=== PATIENT | male | born 1990 | race Hispanic/Latino ===

== ENCOUNTER 2020-06-24 02:25 | Inpatient (IN) | payer MEDICARE ==
[2020-06-24] VITALS (15 sets, daily range): BP systolic 99–157; BP diastolic 57–93
[~2020-06-24] VITALS: Ht 188 cm; Wt 85.7 kg
[~2020-06-24 02:25] MED LIST: BACTRIM DS TAB1 EACH PO; BENTYL20 MG PO; HUMULIN R100 UNIT/2 SC; LEVEMIR100 UNIT/1 SC; METFORMIN HCL500 MG PO
[2020-06-24] MEDS ORDERED: ACETAMINOPHEN 325 MG TAB PO ONE (03:00)
[2020-06-24] MEDS ORDERED: LIDOCAINE 1% W/EPINEPHRINE 20 ML VIAL ONE (05:07)
[2020-06-24] MEDS ORDERED: SODIUM CHLORIDE 0.9% 1000ML 1,000 ML IV ONE (05:15)
[2020-06-24 05:19] LABS: BASOPHILS # (AUTO) 0.1 (0.0-0.1); BASOPHILS % 0.4 % (0.0-1.0); EOSINOPHILS % 0.1 % (0.0-6.0); HEMATOCRIT 30.3 % (38.2-49.6); HEMOGLOBIN 9.4 g/dL (14.0-18.0); LYMPHOCYTES # (AUTO) 1.1 (1.0-3.2); LYMPHOCYTES % 7.7 % (18.0-39.1); MEAN CORPUSCULAR HEMOGLOBIN 29.9 pg (28-32); MEAN CORPUSCULAR VOLUME 96.5 fL (81-99); MONOCYTES # (AUTO) 1.8 (0.2-0.8); MONOCYTES % 13.3 % (4.4-11.3); NEUTROPHILS # (AUTO) 10.5 (2.1-6.9); NEUTROPHILS % 77.6 % (38.7-80.0); PLATELET COUNT 196 x10e3/uL (140-360); RED BLOOD COUNT 3.14 x10e6/uL (4.3-5.7); RED CELL DISTRIBUTION WIDTH 14.2 % (11.7-14.4)
[2020-06-24] MEDS ORDERED: SODIUM CHLORIDE 0.9% 1000ML 1,000 ML ONE (05:20)
[2020-06-24 05:24] LABS: CLARITY,URINE TURBID (CLEAR); COLOR,URINE OTHER (YELLOW)
[2020-06-24 05:25] LABS: KETONES,URINE NEGATIVE (NEGATIVE); LEUKOCYTE ESTERASE ,URINE LARGE (NEGATIVE); NITRITE,URINE NEGATIVE (NEGATIVE); PROTEIN,URINE DIPSTICK >=300 (NEGATIVE); URINE UROBILINOGEN 0.2 mg/dL (0.2 - 1)
[2020-06-24 05:32] LABS: AMPHETAMINES SCREEN,URINE NEGATIVE (NEGATIVE); PHENCYCLIDINE SCREEN,URINE NEGATIVE (NEGATIVE)
[2020-06-24] MEDS ORDERED: CEPHALEXIN500 MG PO (05:42)
[2020-06-24 05:46] LABS: BACTERIA,URINE FEW /HPF; EPITHELIAL CELLS,URINE RARE /LPF; RBC,URINE 0-5 /HPF (0-5); WBC,URINE (MAN) >50 /HPF (0-5)
[2020-06-24 05:52] LABS: BENZODIAZEPINES SCREEN,URINE NEGATIVE (NEGATIVE)
[2020-06-24 06:08] LABS: ANION GAP 24.8 mmol/L (8-16); CALCIUM 7.4 mg/dL (8.4-10.2); CREATININE, SERUM 14.94 mg/dL (0.72-1.25)
[2020-06-24 06:10] LABS: POTASSIUM 7.8 mmol/L (3.5-5.1)
[2020-06-24] MEDS ORDERED: CALCIUM GLUCONATE 10% INJ 4.65 MEQ in SODIUM CHLORIDE 0.9% 50ML 50 ML IV ONE (06:30)
[2020-06-24] MEDS ORDERED: CALCIUM GLUCONATE 10% INJ 0.465 MEQ/ML VIAL ONE (06:39)
[2020-06-24] MEDS ORDERED: SODIUM CHLORIDE 0.9% 50ML 50 ML ONE (06:40)
[2020-06-24] MEDS ORDERED: ALBUTEROL SULF 0.083% NEB SOLN 3 ML NEB NEB STA (06:43)
[2020-06-24] MEDS ORDERED: SODIUM BICARBONATE 8.4% INJ 50 ML SYR IV STA (06:43)
[2020-06-24] MEDS ORDERED: DEXTROSE 10% 1,000 ML IV ONE (06:45)
[2020-06-24 06:47] LABS: ALBUMIN 2.6 g/dL (3.5-5.0); ALBUMIN/GLOBULIN RATIO 0.6 (0.8-2.0); ANION GAP 22.7 mmol/L (8-16); CALCIUM 7.4 mg/dL (8.4-10.2); CREATININE, SERUM 14.59 mg/dL (0.72-1.25)
[2020-06-24 06:48] LABS: POTASSIUM 7.7 mmol/L (3.5-5.1)
[2020-06-24] MEDS ORDERED: FENTANYL CITRATE/PF 100MCG/2 ML INJ IV ONE ×2 (07:00→09:45)
[2020-06-24] MEDS ORDERED: INSULIN REGULAR, HUMAN 100 UNIT/1 ML 3ML VIAL ONE (07:02)
[2020-06-24] MEDS ORDERED: SODIUM CHLORIDE 0.9% 100 ML ONE (07:03)
[2020-06-24] MEDS ORDERED: SODIUM BICARBONATE 8.4% SYRING 50 ML ONE (07:14)
[2020-06-24] MEDS ORDERED: INSULIN REGULAR, HUMAN 3ML VL 100 UNIT in SODIUM CHLORIDE 0.9% 100 ML 99 ML IV SCH ×2 (07:15)
[2020-06-24] MEDS ORDERED: SOD POLYSTYRENE SULFONATE SUSP 15 GM/60 ML BTL PO ONE (07:15)
[2020-06-24] MEDS ORDERED: DEXTROSE 10% IV ONE (07:15)
[2020-06-24] MEDS ORDERED: SODIUM BICARBONATE 8.4% IV ONE (07:15)
[2020-06-24] MEDS ORDERED: HEPARIN SOD (PORCINE) 1000 UNIT/ML SDV ONE (08:25)
[2020-06-24] MEDS ORDERED: LIDOCAINE HCL 1% LOCAL INJ 20 ML VIAL ONE (08:25)
[2020-06-24 09:50] LABS: BASOPHILS # (AUTO) 0.1 (0.0-0.1); BASOPHILS % 0.4 % (0.0-1.0); EOSINOPHILS # (AUTO) 0.1 (0.0-0.4); EOSINOPHILS % 0.4 % (0.0-6.0); HEMOGLOBIN 8.3 g/dL (14.0-18.0); LYMPHOCYTES # (AUTO) 1.5 (1.0-3.2); LYMPHOCYTES % 12.3 % (18.0-39.1); MEAN CORPUSCULAR HEMOGLOBIN 29.9 pg (28-32); MEAN CORPUSCULAR HGB CONC 30.7 g/dL (31-35); MEAN CORPUSCULAR VOLUME 97.1 fL (81-99); MONOCYTES # (AUTO) 1.7 (0.2-0.8); MONOCYTES % 13.8 % (4.4-11.3); NEUTROPHILS # (AUTO) 8.9 (2.1-6.9); NEUTROPHILS % 72.4 % (38.7-80.0); PLATELET COUNT 184 x10e3/uL (140-360); RED BLOOD COUNT 2.78 x10e6/uL (4.3-5.7); RED CELL DISTRIBUTION WIDTH 14.1 % (11.7-14.4)
[2020-06-24 10:09] LABS: ALBUMIN 2.4 g/dL (3.5-5.0); ALBUMIN/GLOBULIN RATIO 0.6 (0.8-2.0); ANION GAP 21.7 mmol/L (8-16); CALCIUM 7.1 mg/dL (8.4-10.2); CREATININE, SERUM 14.64 mg/dL (0.72-1.25); POTASSIUM 5.7 mmol/L (3.5-5.1)
[2020-06-24] MEDS ORDERED: HEPARIN SOD (PORCINE) 1000 UNIT/ML SDV IV PRN (10:45)
[2020-06-24] MEDS ORDERED: MANNITOL 25% 12.5GM/50 ML VIAL IV PRN (10:45)
[2020-06-24] MEDS ORDERED: SODIUM CHLORIDE 0.9% 1000ML 2,000 ML IV PRN (10:45)
[2020-06-24] MEDS ORDERED: MANNITOL 25% 12.5GM/50ML 50 ML ONE ×2 (10:49→10:50)
[2020-06-24] MEDS ORDERED: INSULIN REGULAR, HUMAN 100 UNIT/1 ML 3ML VIAL SQ SCH (11:30)
[2020-06-24] MEDS ORDERED: MIDODRINE HCL5 MG PO (13:15)
[2020-06-24] MEDS ORDERED: NEURONTIN300 MG PO (13:15)
[2020-06-24] MEDS ORDERED: LEVOTHYROXINE50 MCG PO (13:15)
[2020-06-24] MEDS ORDERED: FLUDROCORTISON0.1 MG PO (13:15)
[2020-06-24] MEDS ORDERED: HYDROCODON-ACE1 EA10 PO (13:15)
[2020-06-24] MEDS ORDERED: ZINC PO (13:33)
[2020-06-24] MEDS ORDERED: FLAX PO (13:33)
[2020-06-24] MEDS ORDERED: [UNRECOGNIZED DRUG - OTHER] PO (13:33)
[2020-06-24] MEDS ORDERED: IRON CHEWS15 MG PO (13:33)
[2020-06-24] MEDS ORDERED: B12 PO (13:33)
[2020-06-24] MEDS ORDERED: TURMERIC1 GM PO (13:33)
[2020-06-24] MEDS ORDERED: VITAMIN C1000 MG PO (13:33)
[2020-06-24] MEDS ORDERED: MVI PO (13:33)
[2020-06-24] MEDS ORDERED: PHENYTOIN SODIUM INJ 50 MG/ML 2 ML VIAL IV STA (13:48)
[2020-06-24] MEDS: SODIUM BICARBONATE 8.4% 150 ML in STERILE WATER IV SOLN 1,000 ML IV SCH (14:17)
[2020-06-24] MEDS ORDERED: SODIUM CHLORIDE 0.9% IV ONE (14:30)
[2020-06-24] MEDS ORDERED: PHENYTOIN SODIUM IV ONE (14:30)
[2020-06-24 15:07] LABS: THYROID STIMULATING HORMONE 0.027 uIU/mL (0.350-4.940)
[2020-06-24] MEDS: PIPERACILLIN/TAZOBAC 3.375 GM in SODIUM CHLORIDE 0.9% 50ML 50 ML IV SCH ×2 (15:17→22:16)
[2020-06-24] MEDS ORDERED: LORAZEPAM INJ 2 MG/ML VIAL IV ONE (18:50)
[2020-06-24] MEDS ORDERED: RISPERIDONE 0.5 MG TAB PO PRN (19:00)
[2020-06-24 19:36] LABS: CALCIUM IONIZED 0.9 mmol/L (1.09-1.30)
[2020-06-24 19:54] LABS: MAGNESIUM 1.6 MG/DL (1.3-2.1)
[2020-06-24] MEDS ORDERED: NON-FORMULARY MEDICATION (Insulin Detemir (Levemir) 20 UNITS) SC SCH (21:00)
[2020-06-25] VITALS (24 sets, daily range): BP systolic 133–162; BP diastolic 73–98
[2020-06-25] MEDS: SODIUM BICARBONATE 8.4% 150 ML in STERILE WATER IV SOLN 1,000 ML IV SCH ×3 (01:20→13:01)
[2020-06-25] MEDS: PIPERACILLIN/TAZOBAC 3.375 GM in SODIUM CHLORIDE 0.9% 50ML 50 ML IV SCH (06:13)
[2020-06-25 06:14] LABS: BASOPHILS # (AUTO) 0.1 (0.0-0.1); BASOPHILS % 0.4 % (0.0-1.0); EOSINOPHILS # (AUTO) 0.1 (0.0-0.4); EOSINOPHILS % 0.6 % (0.0-6.0); HEMATOCRIT 24.8 % (38.2-49.6); HEMOGLOBIN 8.1 g/dL (14.0-18.0); LYMPHOCYTES # (AUTO) 0.9 (1.0-3.2); LYMPHOCYTES % 7.3 % (18.0-39.1); MEAN CORPUSCULAR HEMOGLOBIN 29.9 pg (28-32); MEAN CORPUSCULAR HGB CONC 32.7 g/dL (31-35); MEAN CORPUSCULAR VOLUME 91.5 fL (81-99); MONOCYTES # (AUTO) 1.9 (0.2-0.8); MONOCYTES % 15.4 % (4.4-11.3); NEUTROPHILS # (AUTO) 9.1 (2.1-6.9); NEUTROPHILS % 75.7 % (38.7-80.0); PLATELET COUNT 173 x10e3/uL (140-360); RED BLOOD COUNT 2.71 x10e6/uL (4.3-5.7); RED CELL DISTRIBUTION WIDTH 13.9 % (11.7-14.4)
[2020-06-25] MEDS: LEVOTHYROXINE SODIUM 25 MCG TABLET PO SCH (06:14)
[2020-06-25 06:33] LABS: ALBUMIN 2.1 g/dL (3.5-5.0); ALBUMIN/GLOBULIN RATIO 0.6 (0.8-2.0); ANION GAP 19.2 mmol/L (8-16); CREATININE, SERUM 9.54 mg/dL (0.72-1.25); POTASSIUM 4.2 mmol/L (3.5-5.1)
[2020-06-25 06:35] LABS: CALCIUM 6.1 mg/dL (8.4-10.2)
[2020-06-25] MEDS ORDERED: SODIUM CHLORIDE 0.9% 1000ML 1,000 ML ONE (08:27)
[2020-06-25] MEDS ORDERED: CALCIUM GLUCONATE 10% INJ 9.3 MEQ in SODIUM CHLORIDE 0.9% 100 ML 100 ML IV ONE (09:00)
[2020-06-25] MEDS: MIDODRINE HCL 5 MG TABLET PO SCH (09:00)
[2020-06-25] MEDS: OYST-CAL-D 500MG TABLET PO SCH ×3 (10:15→21:45)
[2020-06-25] MEDS ORDERED: HYDROCODONE/APAP 10MG-325MG TAB PO PRN (12:15)
[2020-06-25] MEDS: HYDROCODONE/APAP 5MG-325MG TAB PO PRN ×2 (14:48→23:14)
[2020-06-25] MEDS: PIPERACILLIN/TAZOBACTAM 2.25 GM in SODIUM CHLORIDE 0.9% 50ML 50 ML IV SCH ×2 (15:24→21:45)
[2020-06-25] MEDS: ACETAMINOPHEN 325 MG TAB PO PRN (17:34)
[2020-06-25] MEDS ORDERED: DIATRIZOATE MEGL/DIATRIZOA SOD 30 ML BTL PO ONE (18:54)
[2020-06-25] MEDS: ZOLPIDEM TARTRATE 5 MG TAB PO PRN (23:14)
[2020-06-26] VITALS (19 sets, daily range): BP systolic 124–174; BP diastolic 67–98
[2020-06-26] MEDS: PIPERACILLIN/TAZOBACTAM 2.25 GM in SODIUM CHLORIDE 0.9% 50ML 50 ML IV SCH (05:30)
[2020-06-26] MEDS: LEVOTHYROXINE SODIUM 25 MCG TABLET PO SCH (05:30)
[2020-06-26] MEDS: ACETAMINOPHEN 325 MG TAB PO PRN (06:27)
[2020-06-26 06:41] LABS: BASOPHILS # (AUTO) 0.1 (0.0-0.1); BASOPHILS % 0.7 % (0.0-1.0); EOSINOPHILS # (AUTO) 0.2 (0.0-0.4); EOSINOPHILS % 2.1 % (0.0-6.0); HEMATOCRIT 24.6 % (38.2-49.6); LYMPHOCYTES # (AUTO) 1.1 (1.0-3.2); LYMPHOCYTES % 11.6 % (18.0-39.1); MEAN CORPUSCULAR HEMOGLOBIN 29.7 pg (28-32); MEAN CORPUSCULAR HGB CONC 32.5 g/dL (31-35); MEAN CORPUSCULAR VOLUME 91.4 fL (81-99); MONOCYTES # (AUTO) 1.7 (0.2-0.8); MONOCYTES % 16.9 % (4.4-11.3); NEUTROPHILS # (AUTO) 6.7 (2.1-6.9); NEUTROPHILS % 68.1 % (38.7-80.0); PLATELET COUNT 173 x10e3/uL (140-360); RED BLOOD COUNT 2.69 x10e6/uL (4.3-5.7); RED CELL DISTRIBUTION WIDTH 13.2 % (11.7-14.4)
[2020-06-26 07:14] LABS: ANION GAP 14.5 mmol/L (8-16); CREATININE, SERUM 5.87 mg/dL (0.72-1.25); MAGNESIUM 1.6 MG/DL (1.3-2.1); PHOSPHORUS 4.3 MG/DL (2.3-4.7); POTASSIUM 3.5 mmol/L (3.5-5.1)
[2020-06-26 07:15] LABS: CALCIUM 6.7 mg/dL (8.4-10.2)
[2020-06-26] MEDS: MIDODRINE HCL 5 MG TABLET PO SCH (08:23)
[2020-06-26] MEDS: OYST-CAL-D 500MG TABLET PO SCH ×3 (09:07→21:12)
[2020-06-26] MEDS ORDERED: CEFTRIAXONE SOD 1 GM/50 ML BAG IV SCH (09:30)
[2020-06-26] MEDS: CEFTRIAXONE SOD 1 GM in SODIUM CHLORIDE 0.9% 50ML 50 ML IV SCH (10:14)
[2020-06-26] MEDS: HYDROCODONE/APAP 5MG-325MG TAB PO PRN ×3 (10:14→21:13)
[2020-06-26] MEDS: SODIUM BICARBONATE 8.4% 150 ML in STERILE WATER IV SOLN 1,000 ML IV SCH ×2 (16:43→21:00)
[2020-06-26] MEDS ORDERED: DEXTROSE 50% SYRINGE 50 ML IV PRN (21:30)
[2020-06-26] MEDS: INSULIN REGULAR, HUMAN 100 UNIT/1 ML 3ML VIAL SQ SCH (21:46)
[2020-06-27] VITALS (9 sets, daily range): BP systolic 124–175; BP diastolic 79–107
[2020-06-27] MEDS: HYDROCODONE/APAP 5MG-325MG TAB PO PRN ×2 (03:54→22:00)
[2020-06-27] MEDS: LEVOTHYROXINE SODIUM 25 MCG TABLET PO SCH (06:02)
[2020-06-27] MEDS ORDERED: SODIUM BICARBONATE 8.4% SYRING 150 ML ONE (06:24)
[2020-06-27] MEDS ORDERED: SODIUM CHLORIDE 0.45% 1,000 ML ONE (06:24)
[2020-06-27 06:41] LABS: ALBUMIN 1.8 g/dL (3.5-5.0); ALBUMIN/GLOBULIN RATIO 0.5 (0.8-2.0); ANION GAP 15.1 mmol/L (8-16); CREATININE, SERUM 5.9 mg/dL (0.72-1.25); POTASSIUM 3.1 mmol/L (3.5-5.1)
[2020-06-27 06:42] LABS: CALCIUM 6.8 mg/dL (8.4-10.2)
[2020-06-27 07:10] LABS: MAGNESIUM 1.5 MG/DL (1.3-2.1); PHOSPHORUS 4.4 MG/DL (2.3-4.7)
[2020-06-27] MEDS ORDERED: SODIUM BICARBONATE 8.4% 150 ML in SODIUM CHLORIDE 0.45% 1,000 ML IV SCH (07:15)
[2020-06-27] MEDS: INSULIN REGULAR, HUMAN 100 UNIT/1 ML 3ML VIAL SQ SCH ×4 (07:30→20:41)
[2020-06-27] MEDS ORDERED: INSULIN REGULAR, HUMAN 100 UNIT/1 ML 3ML VIAL SQ SCH (07:30)
[2020-06-27] MEDS: MIDODRINE HCL 5 MG TABLET PO SCH (08:07)
[2020-06-27 08:28] LABS: BASOPHILS # (AUTO) 0.1 (0.0-0.1); BASOPHILS % 0.6 % (0.0-1.0); EOSINOPHILS # (AUTO) 0.3 (0.0-0.4); EOSINOPHILS % 2.9 % (0.0-6.0); HEMATOCRIT 25.8 % (38.2-49.6); HEMOGLOBIN 8.3 g/dL (14.0-18.0); LYMPHOCYTES # (AUTO) 1.4 (1.0-3.2); LYMPHOCYTES % 12.5 % (18.0-39.1); MEAN CORPUSCULAR HEMOGLOBIN 29.5 pg (28-32); MEAN CORPUSCULAR HGB CONC 32.2 g/dL (31-35); MEAN CORPUSCULAR VOLUME 91.8 fL (81-99); MONOCYTES # (AUTO) 1.3 (0.2-0.8); MONOCYTES % 11.9 % (4.4-11.3); NEUTROPHILS # (AUTO) 7.8 (2.1-6.9); NEUTROPHILS % 71.3 % (38.7-80.0); PLATELET COUNT 186 x10e3/uL (140-360); RED BLOOD COUNT 2.81 x10e6/uL (4.3-5.7); RED CELL DISTRIBUTION WIDTH 12.8 % (11.7-14.4)
[2020-06-27] MEDS: OYST-CAL-D 500MG TABLET PO SCH ×3 (08:53→20:39)
[2020-06-27] MEDS ORDERED: ALBUMIN 25% 12.5GM 0.25 GM/ML BTL IV PRN (10:15)
[2020-06-27] MEDS ORDERED: HEPARIN SOD (PORCINE) 1000 UNIT/ML SDV IV PRN (10:15)
[2020-06-27] MEDS ORDERED: SODIUM CHLORIDE 0.9% 1000ML 2,000 ML IV PRN (10:15)
[2020-06-27] MEDS: CEFTRIAXONE SOD 1 GM in SODIUM CHLORIDE 0.9% 50ML 50 ML IV SCH (16:31)
[2020-06-27] MEDS: CLONIDINE HCL 0.2 MG TAB PO PRN (16:44)
[2020-06-27] MEDS: ACETAMINOPHEN 325 MG TAB PO PRN (20:39)
[2020-06-28] VITALS (7 sets, daily range): BP systolic 96–174; BP diastolic 66–97
[2020-06-28] MEDS: CLONIDINE HCL 0.2 MG TAB PO PRN (02:11)
[2020-06-28] MEDS: HYDROCODONE/APAP 5MG-325MG TAB PO PRN ×2 (02:18→19:35)
[2020-06-28 05:53] LABS: ANION GAP 11.8 mmol/L (8-16); CALCIUM 7.4 mg/dL (8.4-10.2); CREATININE, SERUM 4.19 mg/dL (0.72-1.25); POTASSIUM 3.8 mmol/L (3.5-5.1)
[2020-06-28 06:08] LABS: INR 0.98; PROTHROMBIN TIME 13.6 seconds (11.9-14.5)
[2020-06-28] MEDS: LEVOTHYROXINE SODIUM 25 MCG TABLET PO SCH (06:25)
[2020-06-28] MEDS: INSULIN REGULAR, HUMAN 100 UNIT/1 ML 3ML VIAL SQ SCH ×4 (07:26→20:43)
[2020-06-28] MEDS: MIDODRINE HCL 5 MG TABLET PO SCH (08:32)
[2020-06-28] MEDS: NIFEDIPINE CR 30 MG TAB PO SCH ×2 (08:41→20:42)
[2020-06-28] MEDS: OYST-CAL-D 500MG TABLET PO SCH ×3 (08:41→20:42)
[2020-06-28] MEDS ORDERED: MIDAZOLAM HCL 2 MG/2 ML VIAL ONE (09:52)
[2020-06-28] MEDS ORDERED: FENTANYL CITRATE/PF 100MCG/2 ML INJ ONE (09:53)
[2020-06-28] MEDS ORDERED: HEPARIN SOD (PORCINE) 1000 UNIT/ML SDV ONE (09:53)
[2020-06-28] MEDS ORDERED: CEFAZOLIN SOD 1 GM/NS 50ML 50 ML IV ONE (09:54)
[2020-06-28] MEDS ORDERED: LIDOCAINE HCL 1% LOCAL INJ 20 ML VIAL ONE (09:54)
[2020-06-28] MEDS ORDERED: SODIUM CHLORIDE 0.9% 250ML 250 ML ONE (09:54)
[2020-06-28] MEDS ORDERED: LIDOCAINE 2% /EPINEPHRINE 20 ML SDV INJ ONE (10:21)
[2020-06-28] MEDS: CEFTRIAXONE SOD 1 GM in SODIUM CHLORIDE 0.9% 50ML 50 ML IV SCH (11:51)
[2020-06-28] MEDS ORDERED: CEFTRIAXONE SOD 1 GM VIAL ONE (11:58)
[2020-06-28] MEDS ORDERED: SODIUM CHLORIDE 0.9% 50ML 50 ML ONE (11:58)
[2020-06-29] MEDS: HYDROCODONE/APAP 5MG-325MG TAB PO PRN ×3 (00:08→09:42)
[2020-06-29] MEDS: ZOLPIDEM TARTRATE 5 MG TAB PO PRN (00:48)
[2020-06-29 01:40] VITALS: BP 139/86
[2020-06-29 05:49] VITALS: BP 163/94
[2020-06-29] MEDS: LEVOTHYROXINE SODIUM 25 MCG TABLET PO SCH (05:53)
[2020-06-29] MEDS: INSULIN REGULAR, HUMAN 100 UNIT/1 ML 3ML VIAL SQ SCH ×2 (07:30→11:30)
[2020-06-29] MEDS ORDERED: NIFEDIPINE ER30 M1 PO (07:40)
[2020-06-29 07:58] VITALS: BP 160/97
[2020-06-29 08:25] VITALS: BP 160/97
[2020-06-29] MEDS: OYST-CAL-D 500MG TABLET PO SCH (08:50)
[2020-06-29] MEDS: MIDODRINE HCL 5 MG TABLET PO SCH (08:50)
[2020-06-29] MEDS: NIFEDIPINE CR 30 MG TAB PO SCH (08:50)
[2020-06-29] MEDS: CEFTRIAXONE SOD 1 GM in SODIUM CHLORIDE 0.9% 50ML 50 ML IV SCH (10:30)
[2020-06-29 12:54] VITALS: BP 134/81
== END 2020-06-29 13:58 | disposition home or self-care (01) | DRG 673 ==
LOC: ER 02:38 → ERHOLD 07:04 → ICU 10:33 → IMCU 06-26 15:24 → MED/SURG3 06-28 06:37
PROVIDERS: ADMIT Internal Medicine; ATTEND Internal Medicine
PROC: 0HQ0XZZ Repair Scalp Skin, External Approach (ICD-10-PCS; principal; 2020-06-24)
PROC: 06H033Z Insertion of Infusion Device into Inferior Vena Cava, Percutaneous Approach (ICD-10-PCS; 2020-06-24)
PROC: B5191ZA Fluoroscopy of Inferior Vena Cava using Low Osmolar Contrast, Guidance (ICD-10-PCS; 2020-06-24)
PROC: 5A1D70Z Performance of Urinary Filtration, Intermittent, Less than 6 Hours Per Day (ICD-10-PCS; 2020-06-24)
PROC: 5A1D70Z Performance of Urinary Filtration, Intermittent, Less than 6 Hours Per Day (ICD-10-PCS; 2020-06-25)
PROC: 5A1D70Z Performance of Urinary Filtration, Intermittent, Less than 6 Hours Per Day (ICD-10-PCS; 2020-06-27)
PROC: 0JH63XZ Insertion of Tunneled Vascular Access Device into Chest Subcutaneous Tissue and Fascia, Percutaneous Approach (ICD-10-PCS; 2020-06-28)
PROC: 06PYX3Z Removal of Infusion Device from Lower Vein, External Approach (ICD-10-PCS; 2020-06-28)
PROC: 02H633Z Insertion of Infusion Device into Right Atrium, Percutaneous Approach (ICD-10-PCS; 2020-06-28)
PROC: B5181ZA Fluoroscopy of Superior Vena Cava using Low Osmolar Contrast, Guidance (ICD-10-PCS; 2020-06-28)
PROC: 5A1D70Z Performance of Urinary Filtration, Intermittent, Less than 6 Hours Per Day (ICD-10-PCS; 2020-06-29)
DX: N17.9 Acute kidney failure, unspecified (principal); G93.41 Metabolic encephalopathy; N39.0 Urinary tract infection, site not specified; E87.2 Acidosis; I12.0 Hypertensive chronic kidney disease with stage 5 chronic kidney disease or end stage renal disease; W19.XXXA Unspecified fall, initial encounter; S01.01XA Laceration without foreign body of scalp, initial encounter; S01.112A Laceration without foreign body of left eyelid and periocular area, initial encounter; E87.5 Hyperkalemia; E83.51 Hypocalcemia; D64.9 Anemia, unspecified; E10.22 Type 1 diabetes mellitus with diabetic chronic kidney disease; Z79.4 Long term (current) use of insulin; E03.9 Hypothyroidism, unspecified; E10.319 Type 1 diabetes mellitus with unspecified diabetic retinopathy without macular edema; E10.21 Type 1 diabetes mellitus with diabetic nephropathy; G24.9 Dystonia, unspecified; G25.3 Myoclonus; N18.6 End stage renal disease
CPT/HCPCS: 36415; 36556; 36558; 70450; 70486; 74176; 74470; 76770; 76937; 77001; 80048; 80053; 80061; 80307; 81001; 82140; 82948; 83036; 83735; 83874; 84100; 84443; 85025; 85610; 86704; 86706; 87040; 87086; 87340; 90962; 93005; 94640; 96372; 99152; 99285; C1752; C1769; C1892; J0610; J0690; J0696; J1165; J1644; J1817; J2001; J2060; J2150; J2250; J2543; J3010; J7030; J7050; U0002

== ENCOUNTER 2022-05-09 20:56 | Inpatient (IN) | payer MEDICARE ==
[~2022-05-09] VITALS: Ht 162.6 cm; Wt 95.0 kg
[~2022-05-09 20:56] MED LIST changes: +B12 PO; +CEPHALEXIN500 MG PO; +FLAX PO; +FLUDROCORTISON0.1 MG PO; +HYDROCODON-ACE1 EA10 PO; +IRON CHEWS15 MG PO; +LEVOTHYROXINE50 MCG PO; +MIDODRINE HCL5 MG PO; +MVI PO; +NEURONTIN300 MG PO; +NIFEDIPINE ER30 M1 PO; +TURMERIC1 GM PO; +VITAMIN C1000 MG PO; +ZINC PO; +[UNRECOGNIZED DRUG - OTHER] PO
[2022-05-09] MEDS ORDERED: ONDANSETRON HCL INJ 2MG/ML 2ML 2 MG/ML VIAL IV STA (22:22)
[2022-05-09] MEDS ORDERED: SODIUM CHLORIDE FLUSH 10 ML SYR IV PRN (22:30)
[2022-05-09 22:46] LABS: BASOPHILS % 0.4 % (0.0-1.0); EOSINOPHILS % 0.1 % (0.0-6.0); HEMATOCRIT 24.1 % (38.2-49.6); LYMPHOCYTES # (AUTO) 0.7 (1.0-3.2); LYMPHOCYTES % 8.7 % (18.0-39.1); MEAN CORPUSCULAR HEMOGLOBIN 28.8 pg (28-32); MEAN CORPUSCULAR HGB CONC 33.2 g/dL (31-35); MEAN CORPUSCULAR VOLUME 86.7 fL (81-99); MONOCYTES # (AUTO) 0.5 (0.2-0.8); MONOCYTES % 6.2 % (4.4-11.3); NEUTROPHILS # (AUTO) 6.8 (2.1-6.9); NEUTROPHILS % 83.7 % (38.7-80.0); PLATELET COUNT 213 x10e3/uL (140-360); RED BLOOD COUNT 2.78 x10e6/uL (4.3-5.7); RED CELL DISTRIBUTION WIDTH 15.2 % (11.7-14.4)
[2022-05-09 23:05] LABS: ALBUMIN/GLOBULIN RATIO 0.4 (0.8-2.0); ANION GAP 21.2 mmol/L (8-16); CREATININE, SERUM 12.16 mg/dL (0.72-1.25); POTASSIUM 3.2 mmol/L (3.5-5.1)
[2022-05-09 23:19] LABS: CLARITY,URINE TURBID (CLEAR); COLOR,URINE YELLOW (YELLOW)
[2022-05-09 23:20] LABS: AMPHETAMINES SCREEN,URINE NEGATIVE (NEGATIVE); BACTERIA,URINE MODERATE /HPF; BENZODIAZEPINES SCREEN,URINE NEGATIVE (NEGATIVE); EPITHELIAL CELLS,URINE FEW /LPF; KETONES,URINE NEGATIVE (NEGATIVE); LEUKOCYTE ESTERASE ,URINE LARGE (NEGATIVE); NITRITE,URINE NEGATIVE (NEGATIVE); PHENCYCLIDINE SCREEN,URINE NEGATIVE (NEGATIVE); PROTEIN,URINE DIPSTICK >=300 (NEGATIVE); URINE UROBILINOGEN 0.2 mg/dL (0.2 - 1); WBC,URINE (MAN) >50 /HPF (0-5)
[2022-05-10] MEDS ORDERED: ALBUTEROL/IPRATROPIUM 3 ML NEB NEB PRN (01:45)
[2022-05-10] MEDS: ONDANSETRON HCL INJ 2MG/ML 2ML 2 MG/ML VIAL IV PRN ×2 (02:34→11:28)
[2022-05-10] MEDS ORDERED: METOCLOPRAMIDE HCL 10 MG/2ML VIAL IV ONE (05:00)
[2022-05-10] MEDS ORDERED: METOCLOPRAMIDE HCL 10 MG/2ML VIAL ONE (05:08)
[2022-05-10] MEDS: LEVOTHYROXINE SODIUM 25 MCG TABLET PO SCH (09:00)
[2022-05-10] MEDS ORDERED: DEXTROSE 50% SYRINGE 50 ML IV PRN (10:00)
[2022-05-10] MEDS: INSULIN REGULAR, HUMAN 100 UNIT/1 ML SQ SCH ×3 (11:30→21:00)
[2022-05-10] MEDS ORDERED: PROMETHAZINE 12.5MG/ NACL 0.9% 12.5 MG/50 ML BAG IV PRN (11:45)
[2022-05-10 12:50] LABS: CHOL/HDL RATIO 5.7 (3.9-4.7)
[2022-05-10 12:54] LABS: IRON 32 ug/dL (65-175); TRANSFERRIN < 70 mg/dL (174-364)
[2022-05-10 14:06] LABS: FERRITIN 3750.27 ng/mL (21.81-274.66)
[2022-05-10] MEDS: HYDROCODONE/APAP 10MG-325MG TAB PO PRN (14:50)
[2022-05-10 15:30] VITALS: BP 153/94
[2022-05-10 15:36] VITALS: BP 153/94
[2022-05-10] MEDS ORDERED: [UNRECOGNIZED DRUG - OTHER] (18:19)
[2022-05-10] MEDS ORDERED: LASIX40 MG PO (18:20)
[2022-05-10] MEDS ORDERED: ONDANSETRON HCL4 MG PO (18:27)
[2022-05-10] MEDS ORDERED: MORPHINE SULFAT15 M1 PO (18:27)
[2022-05-10] MEDS ORDERED: HUMULIN N100 UNITS/ IJ (18:27)
[2022-05-10] MEDS ORDERED: RENA-VITE TABL0.8 MG PO (18:27)
[2022-05-10] MEDS ORDERED: CREON DR 36,001 EACH PO (18:27)
[2022-05-10] MEDS: CYANOCOBALAMIN 1,000 MCG TAB PO SCH (18:28)
[2022-05-10] MEDS: MULTIVITAMINS/MINERALS TAB PO SCH (18:28)
[2022-05-10 18:53] VITALS: BP 150/90
[2022-05-10 20:00] VITALS: BP 143/83
[2022-05-10 21:00] VITALS: BP 143/83
[2022-05-10] MEDS: INSULIN GLARGINE 100 UNITS/ML VIAL SC SCH (21:00)
[2022-05-11] VITALS (8 sets, daily range): BP systolic 130–153; BP diastolic 77–93
[2022-05-11] MEDS: LEVOTHYROXINE SODIUM 25 MCG TABLET PO SCH (04:41)
[2022-05-11 05:53] LABS: BASOPHILS % 0.3 % (0.0-1.0); EOSINOPHILS % 0.1 % (0.0-6.0); HEMATOCRIT 21.4 % (38.2-49.6); HEMOGLOBIN 7.2 g/dL (14.0-18.0); LYMPHOCYTES # (AUTO) 0.7 (1.0-3.2); LYMPHOCYTES % 7.6 % (18.0-39.1); MEAN CORPUSCULAR HEMOGLOBIN 28.7 pg (28-32); MEAN CORPUSCULAR HGB CONC 33.6 g/dL (31-35); MEAN CORPUSCULAR VOLUME 85.3 fL (81-99); MONOCYTES # (AUTO) 0.5 (0.2-0.8); MONOCYTES % 5.7 % (4.4-11.3); NEUTROPHILS # (AUTO) 7.5 (2.1-6.9); NEUTROPHILS % 85.2 % (38.7-80.0); PLATELET COUNT 241 x10e3/uL (140-360); RED BLOOD COUNT 2.51 x10e6/uL (4.3-5.7); RED CELL DISTRIBUTION WIDTH 15.1 % (11.7-14.4)
[2022-05-11 06:18] LABS: ALBUMIN 1.7 g/dL (3.5-5.0); ALBUMIN/GLOBULIN RATIO 0.4 (0.8-2.0); ANION GAP 20.9 mmol/L (8-16); CALCIUM 7.3 mg/dL (8.4-10.2); CREATININE, SERUM 12.38 mg/dL (0.72-1.25)
[2022-05-11 06:23] LABS: POTASSIUM 2.9 mmol/L (3.5-5.1)
[2022-05-11] MEDS: INSULIN REGULAR, HUMAN 100 UNIT/1 ML SQ SCH ×5 (07:30→21:31)
[2022-05-11] MEDS: FAMOTIDINE 20 MG TAB PO SCH ×2 (09:44→11:23)
[2022-05-11] MEDS ORDERED: ACETAMINOPHEN 325 MG TAB PO PRN (12:00)
[2022-05-11] MEDS: DEXAMETHASONE 4 MG TAB PO SCH (14:58)
[2022-05-11] MEDS ORDERED: REMDESIVIR 100MG 200 MG in SODIUM CHLORIDE 0.9% 100 ML IV ONE (15:00)
[2022-05-11] MEDS: MULTIVITAMINS/MINERALS TAB PO SCH (16:50)
[2022-05-11] MEDS: CYANOCOBALAMIN 1,000 MCG TAB PO SCH (16:51)
[2022-05-11] MEDS: INSULIN GLARGINE 100 UNITS/ML VIAL SC SCH ×2 (21:00→21:30)
[2022-05-11] MEDS: HYDROCODONE/APAP 10MG-325MG TAB PO PRN (22:19)
[2022-05-12] VITALS (8 sets, daily range): BP systolic 151–173; BP diastolic 85–97
[2022-05-12] MEDS: LEVOTHYROXINE SODIUM 25 MCG TABLET PO SCH (05:44)
[2022-05-12] MEDS: INSULIN REGULAR, HUMAN 100 UNIT/1 ML SQ SCH ×4 (07:30→21:00)
[2022-05-12] MEDS: DEXAMETHASONE 4 MG TAB PO SCH (09:05)
[2022-05-12] MEDS ORDERED: MIDODRINE HCL5 MG PO (11:52)
[2022-05-12] MEDS ORDERED: DIALYVITE 800-1 EAC1 PO (11:52)
[2022-05-12] MEDS ORDERED: LOMOTIL TABLET1 EACH PO (11:52)
[2022-05-12] MEDS ORDERED: LEVOTHYROXINE50 MCG PO (11:52)
[2022-05-12] MEDS ORDERED: TERAZOSIN HCL5 MG PO (11:52)
[2022-05-12] MEDS ORDERED: RENAGEL800 MG PO (11:52)
[2022-05-12] MEDS ORDERED: FLUDROCORTISON0.1 MG PO (11:52)
[2022-05-12] MEDS ORDERED: MS CONTIN15 MG PO (11:52)
[2022-05-12] MEDS ORDERED: HYDROCODON-ACE1 EA11 PO (11:52)
[2022-05-12] MEDS ORDERED: NIFEDIPINE ER30 M1 PO (11:52)
[2022-05-12] MEDS ORDERED: VITAMIN D250 MCG PO (11:52)
[2022-05-12] MEDS ORDERED: CREON DR 3,0001 EACH PO (12:02)
[2022-05-12] MEDS ORDERED: CREON DR 36,001 EACH PO (12:05)
[2022-05-12] MEDS: REMDESIVIR 100MG 100 MG in SODIUM CHLORIDE 0.9% 100 ML IV SCH (14:00)
[2022-05-12] MEDS ORDERED: SEVELAMER CARBONATE 800 MG TAB PO SCH (15:00)
[2022-05-12 15:07] LABS: ANION GAP 24.2 mmol/L (8-16); CALCIUM 7.5 mg/dL (8.4-10.2); CREATININE, SERUM 13.23 mg/dL (0.72-1.25); POTASSIUM 3.2 mmol/L (3.5-5.1)
[2022-05-12] MEDS: [UNRECOGNIZED DRUG - OTHER] PO SCH (16:57)
[2022-05-12] MEDS: MULTIVITAMINS/MINERALS TAB PO SCH (16:57)
[2022-05-12] MEDS: PANCRELIPASE PO SCH (16:57)
[2022-05-12] MEDS: SEVELAMER CARBONATE 800 MG TAB PO SCH (16:58)
[2022-05-12] MEDS ORDERED: POTASSIUM CHLORIDE 20 MEQ TAB CR PO ONE (17:00)
[2022-05-12] MEDS: CYANOCOBALAMIN 1,000 MCG TAB PO SCH (17:05)
[2022-05-12] MEDS: INSULIN GLARGINE 100 UNITS/ML VIAL SC SCH (21:00)
[2022-05-12] MEDS: ROPINIROLE HCL 0.25 MG TAB PO SCH (22:53)
[2022-05-12] MEDS: HYDROCODONE/APAP 10MG-325MG TAB PO PRN (22:53)
[2022-05-13] VITALS (8 sets, daily range): BP systolic 143–166; BP diastolic 71–99
[2022-05-13] MEDS: LEVOTHYROXINE SODIUM 25 MCG TABLET PO SCH (06:20)
[2022-05-13] MEDS: HYDROCODONE/APAP 10MG-325MG TAB PO PRN (06:21)
[2022-05-13] MEDS: INSULIN REGULAR, HUMAN 100 UNIT/1 ML SQ SCH ×4 (07:30→21:00)
[2022-05-13] MEDS: PANCRELIPASE PO SCH ×3 (08:53→16:42)
[2022-05-13] MEDS: [UNRECOGNIZED DRUG - OTHER] PO SCH ×3 (08:53→16:42)
[2022-05-13] MEDS: DEXAMETHASONE 4 MG TAB PO SCH (08:54)
[2022-05-13] MEDS: FAMOTIDINE 20 MG TAB PO SCH (08:54)
[2022-05-13] MEDS: SEVELAMER CARBONATE 800 MG TAB PO SCH ×3 (08:54→16:39)
[2022-05-13] MEDS ORDERED: GENTAMICIN SULFATE 15 GM CR TP SCH (09:00)
[2022-05-13] MEDS: REMDESIVIR 100MG 100 MG in SODIUM CHLORIDE 0.9% 100 ML IV SCH (14:36)
[2022-05-13] MEDS ORDERED: INSULIN GLARGINE 100 UNITS/ML VIAL SQ SCH (15:30)
[2022-05-13] MEDS: CYANOCOBALAMIN 1,000 MCG TAB PO SCH (16:39)
[2022-05-13] MEDS: MULTIVITAMINS/MINERALS TAB PO SCH (16:39)
[2022-05-13] MEDS: INSULIN GLARGINE 100 UNITS/ML VIAL SC SCH (21:00)
[2022-05-13] MEDS: ROPINIROLE HCL 0.25 MG TAB PO SCH (21:15)
[2022-05-14] VITALS (7 sets, daily range): BP systolic 152–180; BP diastolic 85–105
[2022-05-14] MEDS: LEVOTHYROXINE SODIUM 25 MCG TABLET PO SCH (05:20)
[2022-05-14] MEDS: SEVELAMER CARBONATE 800 MG TAB PO SCH ×3 (08:00→17:27)
[2022-05-14] MEDS: PANCRELIPASE PO SCH ×3 (08:00→17:28)
[2022-05-14] MEDS: [UNRECOGNIZED DRUG - OTHER] PO SCH ×3 (08:00→17:28)
[2022-05-14 08:06] LABS: BASOPHILS % 0.1 % (0.0-1.0); HEMATOCRIT 24.4 % (38.2-49.6); HEMOGLOBIN 8.2 g/dL (14.0-18.0); LYMPHOCYTES % 6.6 % (18.0-39.1); MEAN CORPUSCULAR HEMOGLOBIN 28.9 pg (28-32); MEAN CORPUSCULAR HGB CONC 33.6 g/dL (31-35); MEAN CORPUSCULAR VOLUME 85.9 fL (81-99); MONOCYTES # (AUTO) 1.2 (0.2-0.8); NEUTROPHILS # (AUTO) 12.1 (2.1-6.9); NEUTROPHILS % 79.5 % (38.7-80.0); PLATELET COUNT 316 x10e3/uL (140-360); RED BLOOD COUNT 2.84 x10e6/uL (4.3-5.7); RED CELL DISTRIBUTION WIDTH 15.4 % (11.7-14.4)
[2022-05-14 08:30] LABS: CREATININE, SERUM 12.59 mg/dL (0.72-1.25)
[2022-05-14] MEDS: INSULIN REGULAR, HUMAN 100 UNIT/1 ML SQ SCH ×4 (08:30→21:00)
[2022-05-14 08:42] LABS: CALCIUM 6.7 mg/dL (8.4-10.2)
[2022-05-14] MEDS: FAMOTIDINE 20 MG TAB PO SCH (09:00)
[2022-05-14] MEDS ORDERED: GENTAMICIN SULFATE 15 GM CR TP SCH (09:00)
[2022-05-14] MEDS: DEXAMETHASONE 4 MG TAB PO SCH (09:00)
[2022-05-14] MEDS: CALCIUM GLUC 1 G/50 ML NACL 50 ML IV SCH ×2 (09:53→13:54)
[2022-05-14] MEDS ORDERED: Vancomycin IV 1 GM in SODIUM CHLORIDE 0.9% 250ML 250 ML IV ONE (10:00)
[2022-05-14] MEDS ORDERED: POTASSIUM CHLORIDE 20 MEQ TAB CR PO ONE (12:45)
[2022-05-14] MEDS: REMDESIVIR 100MG 100 MG in SODIUM CHLORIDE 0.9% 100 ML IV SCH (14:00)
[2022-05-14] MEDS: MULTIVITAMINS/MINERALS TAB PO SCH (17:26)
[2022-05-14] MEDS: CYANOCOBALAMIN 1,000 MCG TAB PO SCH (17:27)
[2022-05-14 20:20] LABS: BODY FLUID TYPE PERITONEAL
[2022-05-14 20:21] LABS: BODY FLUID APPEARANCE CLEAR; BODY FLUID COLOR COLORLESS
[2022-05-14 20:38] LABS: RBC,BODY FLUID < 2000 cells/uL; WBC,BODY FLUID 4 cells/uL
[2022-05-14] MEDS ORDERED: CLONAZEPAM 0.5 MG TAB PO PRN (21:00)
[2022-05-14] MEDS: ROPINIROLE HCL 0.25 MG TAB PO SCH (21:50)
[2022-05-14] MEDS: HYDROCODONE/APAP 10MG-325MG TAB PO PRN ×2 (22:54→23:48)
[2022-05-14] MEDS: NIFEDIPINE CR 30 MG TAB PO SCH (22:57)
[2022-05-14] MEDS: NPH, HUMAN INSULIN ISOPHANE 100 UNIT/1 ML 3ML VIAL SQ SCH (23:08)
[2022-05-15] VITALS (7 sets, daily range): BP systolic 85–172; BP diastolic 55–90
[2022-05-15] MEDS: HYDROCODONE/APAP 10MG-325MG TAB PO PRN ×3 (02:32→20:58)
[2022-05-15] MEDS: LEVOTHYROXINE SODIUM 25 MCG TABLET PO SCH (05:56)
[2022-05-15] MEDS: DEXAMETHASONE 4 MG TAB PO SCH (08:58)
[2022-05-15] MEDS: FAMOTIDINE 20 MG TAB PO SCH (08:58)
[2022-05-15] MEDS: SEVELAMER CARBONATE 800 MG TAB PO SCH ×3 (08:59→17:22)
[2022-05-15] MEDS: [UNRECOGNIZED DRUG - OTHER] PO SCH ×3 (08:59→17:00)
[2022-05-15] MEDS: PANCRELIPASE PO SCH ×3 (08:59→17:00)
[2022-05-15] MEDS: NIFEDIPINE CR 30 MG TAB PO SCH ×2 (09:00→20:51)
[2022-05-15] MEDS: INSULIN REGULAR, HUMAN 100 UNIT/1 ML SQ SCH ×4 (09:03→21:00)
[2022-05-15 10:19] LABS: BASOPHILS % 0.2 % (0.0-1.0); HEMATOCRIT 26.3 % (38.2-49.6); HEMOGLOBIN 8.8 g/dL (14.0-18.0); LYMPHOCYTES # (AUTO) 1.3 (1.0-3.2); LYMPHOCYTES % 7.7 % (18.0-39.1); MEAN CORPUSCULAR HEMOGLOBIN 28.9 pg (28-32); MEAN CORPUSCULAR HGB CONC 33.5 g/dL (31-35); MEAN CORPUSCULAR VOLUME 86.2 fL (81-99); MONOCYTES # (AUTO) 0.7 (0.2-0.8); MONOCYTES % 4.4 % (4.4-11.3); NEUTROPHILS # (AUTO) 13.6 (2.1-6.9); NEUTROPHILS % 82.3 % (38.7-80.0); PLATELET COUNT 361 x10e3/uL (140-360); RED BLOOD COUNT 3.05 x10e6/uL (4.3-5.7)
[2022-05-15 10:38] LABS: ANION GAP 19.2 mmol/L (8-16); CALCIUM 7.5 mg/dL (8.4-10.2); CREATININE, SERUM 13.69 mg/dL (0.72-1.25); POTASSIUM 3.2 mmol/L (3.5-5.1)
[2022-05-15 11:58] LABS: LYMPHOCYTES % (MANUAL) 10 % (19-48); MONOCYTES % (MANUAL) 2 % (3.4-9.0); MYELOCYTES % (MANUAL) 1 % (0-0); NEUTROPHILS % (MANUAL) 87 % (40-74); PLATELET ESTIMATE ADEQUATE; PLATELET MORPHOLOGY COMMENT NORMAL; RBC MORPHOLOGY COMMENT NORMAL
[2022-05-15] MEDS: REMDESIVIR 100MG 100 MG in SODIUM CHLORIDE 0.9% 100 ML IV SCH (14:47)
[2022-05-15] MEDS ORDERED: ALTEPLASE RECOMBINANT 2 MG/2 ML VIAL IV ONE (15:30)
[2022-05-15] MEDS: CYANOCOBALAMIN 1,000 MCG TAB PO SCH (17:22)
[2022-05-15] MEDS: MULTIVITAMINS/MINERALS TAB PO SCH (17:22)
[2022-05-15] MEDS ORDERED: ONDANSETRON HCL 4 MG ORAL DISINTEGRATING TAB PO PRN (19:30)
[2022-05-15] MEDS: ROPINIROLE HCL 0.25 MG TAB PO SCH (20:52)
[2022-05-15] MEDS: METRONIDAZOLE 500 MG TAB PO SCH (20:52)
[2022-05-15] MEDS: NPH, HUMAN INSULIN ISOPHANE 100 UNIT/1 ML 3ML VIAL SQ SCH (20:53)
[2022-05-15] MEDS: GENTAMICIN SULFATE 15 GM CR TP SCH (21:00)
[2022-05-16] VITALS (8 sets, daily range): BP systolic 109–142; BP diastolic 55–82
[2022-05-16] MEDS: LEVOTHYROXINE SODIUM 25 MCG TABLET PO SCH (05:20)
[2022-05-16] MEDS: HYDROCODONE/APAP 10MG-325MG TAB PO PRN ×2 (05:28→21:40)
[2022-05-16] MEDS: INSULIN REGULAR, HUMAN 100 UNIT/1 ML SQ SCH ×4 (07:30→21:00)
[2022-05-16 08:59] LABS: INR 1.23; PROTHROMBIN TIME 15.7 seconds (11.9-14.5)
[2022-05-16] MEDS: NIFEDIPINE CR 30 MG TAB PO SCH ×2 (09:00→21:16)
[2022-05-16] MEDS ORDERED: LIDOCAINE 1% 10 ML MULTIDOSE VIAL IJ ONE (11:28)
[2022-05-16] MEDS ORDERED: SODIUM CHLORIDE 0.9% 250ML 250 ML ONE ×2 (11:28→11:53)
[2022-05-16 11:31] LABS: BASOPHILS # (AUTO) 0.1 (0.0-0.1); BASOPHILS % 0.2 % (0.0-1.0); HEMATOCRIT 26.2 % (38.2-49.6); HEMOGLOBIN 8.8 g/dL (14.0-18.0); LYMPHOCYTES # (AUTO) 1.4 (1.0-3.2); MEAN CORPUSCULAR HEMOGLOBIN 28.8 pg (28-32); MEAN CORPUSCULAR HGB CONC 33.6 g/dL (31-35); MEAN CORPUSCULAR VOLUME 85.6 fL (81-99); MONOCYTES # (AUTO) 1.2 (0.2-0.8); MONOCYTES % 5.6 % (4.4-11.3); NEUTROPHILS # (AUTO) 16.5 (2.1-6.9); NEUTROPHILS % 80.5 % (38.7-80.0); PLATELET COUNT 421 x10e3/uL (140-360); RED BLOOD COUNT 3.06 x10e6/uL (4.3-5.7)
[2022-05-16 11:43] LABS: ANION GAP 19.5 mmol/L (8-16); CALCIUM 7.6 mg/dL (8.4-10.2); CREATININE, SERUM 14.29 mg/dL (0.72-1.25); POTASSIUM 3.5 mmol/L (3.5-5.1)
[2022-05-16] MEDS ORDERED: FENTANYL CITRATE/PF 100MCG/2 ML INJ ONE (11:52)
[2022-05-16] MEDS ORDERED: MIDAZOLAM HCL 2 MG/2 ML VIAL ONE (11:52)
[2022-05-16] MEDS ORDERED: HEPARIN SOD (PORCINE) 1000 UNIT/ML SDV ONE (11:53)
[2022-05-16] MEDS: SEVELAMER CARBONATE 800 MG TAB PO SCH ×3 (12:00→17:10)
[2022-05-16] MEDS: [UNRECOGNIZED DRUG - OTHER] PO SCH ×3 (12:30→17:09)
[2022-05-16] MEDS: PANCRELIPASE PO SCH ×3 (12:30→17:09)
[2022-05-16 12:50] LABS: LYMPHOCYTES % (MANUAL) 2 % (19-48); MONOCYTES % (MANUAL) 2 % (3.4-9.0); MYELOCYTES % (MANUAL) 2 % (0-0); NEUTROPHILS % (MANUAL) 94 % (40-74); PLATELET ESTIMATE ADEQUATE
[2022-05-16 12:51] LABS: PLATELET MORPHOLOGY COMMENT NORMAL; RBC MORPHOLOGY COMMENT NORMAL
[2022-05-16] MEDS: METRONIDAZOLE 500 MG TAB PO SCH ×2 (13:27→21:14)
[2022-05-16] MEDS: DEXAMETHASONE 4 MG TAB PO SCH (13:27)
[2022-05-16] MEDS: FAMOTIDINE 20 MG TAB PO SCH (13:32)
[2022-05-16] MEDS ORDERED: SODIUM CHLORIDE 0.9% 1000ML 2,000 ML IV PRN (15:30)
[2022-05-16] MEDS ORDERED: HEPARIN SOD (PORCINE) 1000 UNIT/ML SDV IV PRN (15:30)
[2022-05-16] MEDS ORDERED: SODIUM CHLORIDE 0.9% 1000ML 1,000 ML ONE (15:30)
[2022-05-16] MEDS ORDERED: HEPARIN 500 UNITS/5ML MDV INJ ONE (16:30)
[2022-05-16] MEDS: MULTIVITAMINS/MINERALS TAB PO SCH (17:09)
[2022-05-16] MEDS: CYANOCOBALAMIN 1,000 MCG TAB PO SCH (17:10)
[2022-05-16] MEDS: GENTAMICIN SULFATE 15 GM CR TP SCH (21:00)
[2022-05-16] MEDS: ROPINIROLE HCL 0.25 MG TAB PO SCH (21:16)
[2022-05-16] MEDS: NPH, HUMAN INSULIN ISOPHANE 100 UNIT/1 ML 3ML VIAL SQ SCH (21:17)
[2022-05-17] VITALS (8 sets, daily range): BP systolic 139–189; BP diastolic 55–107
[2022-05-17] MEDS: LOPERAMIDE HCL 2 MG CAP PO PRN ×2 (06:16→16:53)
[2022-05-17] MEDS: LEVOTHYROXINE SODIUM 25 MCG TABLET PO SCH (06:16)
[2022-05-17] MEDS: HYDROCODONE/APAP 10MG-325MG TAB PO PRN ×2 (06:22→22:11)
[2022-05-17] MEDS: [UNRECOGNIZED DRUG - OTHER] PO SCH ×3 (08:00→16:53)
[2022-05-17] MEDS: PANCRELIPASE PO SCH ×3 (08:00→16:53)
[2022-05-17] MEDS: DEXAMETHASONE 4 MG TAB PO SCH (08:28)
[2022-05-17] MEDS: METRONIDAZOLE 500 MG TAB PO SCH ×2 (08:28→20:50)
[2022-05-17] MEDS: FAMOTIDINE 20 MG TAB PO SCH (08:28)
[2022-05-17] MEDS: SEVELAMER CARBONATE 800 MG TAB PO SCH ×3 (08:29→16:53)
[2022-05-17] MEDS: NIFEDIPINE CR 30 MG TAB PO SCH ×2 (08:29→20:52)
[2022-05-17] MEDS: INSULIN REGULAR, HUMAN 100 UNIT/1 ML SQ SCH ×4 (08:30→21:00)
[2022-05-17 08:55] LABS: BASOPHILS % 0.2 % (0.0-1.0); HEMATOCRIT 25.8 % (38.2-49.6); HEMOGLOBIN 8.5 g/dL (14.0-18.0); LYMPHOCYTES % 5.2 % (18.0-39.1); MEAN CORPUSCULAR HGB CONC 32.9 g/dL (31-35); MEAN CORPUSCULAR VOLUME 88.1 fL (81-99); MONOCYTES # (AUTO) 1.1 (0.2-0.8); MONOCYTES % 5.5 % (4.4-11.3); NEUTROPHILS # (AUTO) 15.8 (2.1-6.9); NEUTROPHILS % 82.6 % (38.7-80.0); PLATELET COUNT 422 x10e3/uL (140-360); RED BLOOD COUNT 2.93 x10e6/uL (4.3-5.7); RED CELL DISTRIBUTION WIDTH 16.4 % (11.7-14.4)
[2022-05-17] MEDS ORDERED: NIFEDIPINE CR 30 MG TAB PO ONE (09:45)
[2022-05-17 10:37] LABS: LYMPHOCYTES % (MANUAL) 5 % (19-48); METAMYELOCYTES % (MANUAL) 2 % (0-0); MONOCYTES % (MANUAL) 4 % (3.4-9.0); MYELOCYTES % (MANUAL) 6 % (0-0); NEUTROPHILS % (MANUAL) 83 % (40-74); PLATELET ESTIMATE ADEQUATE; PLATELET MORPHOLOGY COMMENT NORMAL; RBC MORPHOLOGY COMMENT NORMAL
[2022-05-17] MEDS ORDERED: IPRATROPIUM BROMIDE 0.02% 2.5 ML NEB NEB PRN (11:30)
[2022-05-17] MEDS ORDERED: ALBUTEROL SULF 0.083% NEB SOLN 3 ML NEB NEB PRN (11:30)
[2022-05-17] MEDS: CYANOCOBALAMIN 1,000 MCG TAB PO SCH (16:53)
[2022-05-17] MEDS: MULTIVITAMINS/MINERALS TAB PO SCH (16:53)
[2022-05-17] MEDS ORDERED: LOMOTIL TABLET1 EACH PO (17:18)
[2022-05-17] MEDS: ROPINIROLE HCL 0.25 MG TAB PO SCH (20:50)
[2022-05-17] MEDS: NPH, HUMAN INSULIN ISOPHANE 100 UNIT/1 ML 3ML VIAL SQ SCH (21:00)
[2022-05-17] MEDS ORDERED: INSULIN REGULAR, HUMAN 100 UNIT/1 ML SQ ONE (21:00)
[2022-05-17] MEDS: GENTAMICIN SULFATE 15 GM CR TP SCH (21:00)
[2022-05-18] VITALS (7 sets, daily range): BP systolic 111–163; BP diastolic 72–103
[2022-05-18] MEDS: LEVOTHYROXINE SODIUM 25 MCG TABLET PO SCH (05:46)
[2022-05-18 05:51] LABS: BASOPHILS # (AUTO) 0.1 (0.0-0.1); BASOPHILS % 0.2 % (0.0-1.0); EOSINOPHILS % 0.1 % (0.0-6.0); HEMATOCRIT 23.5 % (38.2-49.6); HEMOGLOBIN 7.7 g/dL (14.0-18.0); LYMPHOCYTES # (AUTO) 2.4 (1.0-3.2); MEAN CORPUSCULAR HEMOGLOBIN 29.2 pg (28-32); MEAN CORPUSCULAR HGB CONC 32.8 g/dL (31-35); MONOCYTES % 8.3 % (4.4-11.3); NEUTROPHILS % 76.1 % (38.7-80.0); PLATELET COUNT 411 x10e3/uL (140-360); RED BLOOD COUNT 2.64 x10e6/uL (4.3-5.7); RED CELL DISTRIBUTION WIDTH 16.8 % (11.7-14.4)
[2022-05-18] MEDS: HYDROCODONE/APAP 10MG-325MG TAB PO PRN ×2 (05:58→21:41)
[2022-05-18 07:26] LABS: LYMPHOCYTES % (MANUAL) 10 % (19-48); MONOCYTES % (MANUAL) 6 % (3.4-9.0); NEUTROPHILS % (MANUAL) 84 % (40-74); NUCLEATED RED BLOOD CELLS 1
[2022-05-18 07:27] LABS: ANISOCYTOSIS SLIGHT; HYPOCHROMASIA SLIGHT; PLATELET ESTIMATE ADEQUATE; PLATELET MORPHOLOGY COMMENT NORMAL; RBC MORPHOLOGY COMMENT NORMAL
[2022-05-18] MEDS: PANCRELIPASE PO SCH ×3 (08:00→15:48)
[2022-05-18] MEDS: [UNRECOGNIZED DRUG - OTHER] PO SCH ×3 (08:00→15:48)
[2022-05-18] MEDS: LOPERAMIDE HCL 2 MG CAP PO PRN (08:13)
[2022-05-18] MEDS: FAMOTIDINE 20 MG TAB PO SCH (08:13)
[2022-05-18] MEDS: METRONIDAZOLE 500 MG TAB PO SCH ×2 (08:13→20:26)
[2022-05-18] MEDS: SEVELAMER CARBONATE 800 MG TAB PO SCH ×3 (08:13→15:49)
[2022-05-18] MEDS: DEXAMETHASONE 4 MG TAB PO SCH (08:13)
[2022-05-18] MEDS: NIFEDIPINE CR 30 MG TAB PO SCH ×2 (08:14→20:25)
[2022-05-18] MEDS: INSULIN REGULAR, HUMAN 100 UNIT/1 ML SQ SCH ×4 (08:16→21:00)
[2022-05-18] MEDS ORDERED: SODIUM CHLORIDE 0.9% 250ML 250 ML IV ONE (13:00)
[2022-05-18] MEDS: DIPHENOXYLATE/ATROPINE TAB PO SCH ×2 (15:00→20:25)
[2022-05-18] MEDS: CYANOCOBALAMIN 1,000 MCG TAB PO SCH (15:49)
[2022-05-18] MEDS: MULTIVITAMINS/MINERALS TAB PO SCH (15:49)
[2022-05-18] MEDS ORDERED: SODIUM CHLORIDE 0.9% 250ML 250 ML ONE (16:24)
[2022-05-18] MEDS: ROPINIROLE HCL 0.25 MG TAB PO SCH (20:25)
[2022-05-18] MEDS ORDERED: INSULIN REGULAR, HUMAN 100 UNIT/1 ML SQ ONE (20:30)
[2022-05-18] MEDS: NPH, HUMAN INSULIN ISOPHANE 100 UNIT/1 ML 3ML VIAL SQ SCH (20:39)
[2022-05-18] MEDS: GENTAMICIN SULFATE 15 GM CR TP SCH (21:00)
[2022-05-19] VITALS (7 sets, daily range): BP systolic 106–145; BP diastolic 64–97
[2022-05-19 05:54] LABS: BASOPHILS # (AUTO) 0.1 (0.0-0.1); BASOPHILS % 0.2 % (0.0-1.0); EOSINOPHILS % 0.1 % (0.0-6.0); HEMATOCRIT 27.1 % (38.2-49.6); HEMOGLOBIN 8.6 g/dL (14.0-18.0); LYMPHOCYTES # (AUTO) 1.8 (1.0-3.2); LYMPHOCYTES % 6.7 % (18.0-39.1); MEAN CORPUSCULAR HEMOGLOBIN 29.6 pg (28-32); MEAN CORPUSCULAR HGB CONC 31.7 g/dL (31-35); MEAN CORPUSCULAR VOLUME 93.1 fL (81-99); MONOCYTES # (AUTO) 1.8 (0.2-0.8); NEUTROPHILS # (AUTO) 21.5 (2.1-6.9); NEUTROPHILS % 81.5 % (38.7-80.0); PLATELET COUNT 355 x10e3/uL (140-360); RED BLOOD COUNT 2.91 x10e6/uL (4.3-5.7); RED CELL DISTRIBUTION WIDTH 17.2 % (11.7-14.4)
[2022-05-19] MEDS: LEVOTHYROXINE SODIUM 25 MCG TABLET PO SCH (06:00)
[2022-05-19 06:20] LABS: ALBUMIN 1.8 g/dL (3.5-5.0); ALBUMIN/GLOBULIN RATIO 0.5 (0.8-2.0); ANION GAP 14.1 mmol/L (8-16); CALCIUM 7.8 mg/dL (8.4-10.2); CREATININE, SERUM 7.73 mg/dL (0.72-1.25); POTASSIUM 4.1 mmol/L (3.5-5.1)
[2022-05-19] MEDS: SEVELAMER CARBONATE 800 MG TAB PO SCH ×3 (08:00→16:40)
[2022-05-19] MEDS: [UNRECOGNIZED DRUG - OTHER] PO SCH ×3 (08:00→16:50)
[2022-05-19] MEDS: PANCRELIPASE PO SCH ×3 (08:00→16:50)
[2022-05-19 08:41] LABS: BAND NEUTROPHILS % (MANUAL) 1 %; LYMPHOCYTES % (MANUAL) 6 % (19-48); METAMYELOCYTES % (MANUAL) 2 % (0-0); MONOCYTES % (MANUAL) 9 % (3.4-9.0); MYELOCYTES % (MANUAL) 1 % (0-0); NEUTROPHILS % (MANUAL) 81 % (40-74); PLATELET ESTIMATE ADEQUATE; PLATELET MORPHOLOGY COMMENT NORMAL; RBC MORPHOLOGY COMMENT NORMAL
[2022-05-19] MEDS: INSULIN REGULAR, HUMAN 100 UNIT/1 ML SQ SCH ×4 (08:48→21:22)
[2022-05-19] MEDS: NIFEDIPINE CR 30 MG TAB PO SCH ×2 (09:00→21:17)
[2022-05-19] MEDS ORDERED: BUPIVACAINE HCL 0.5% INJ 30 ML VIAL INJ ONE (09:42)
[2022-05-19] MEDS ORDERED: SUGAMMADEX SODIUM 200 MG/2 ML VIAL IV ONE (10:08)
[2022-05-19] MEDS ORDERED: Morphine 4mg INJECTION 4 MG/ML INJ IV PRN (10:15)
[2022-05-19] MEDS ORDERED: HYDROCODONE/APAP 5MG-325MG TAB PO PRN (10:15)
[2022-05-19] MEDS: DEXAMETHASONE 4 MG TAB PO SCH (11:43)
[2022-05-19] MEDS: METRONIDAZOLE 500 MG TAB PO SCH ×2 (11:43→21:18)
[2022-05-19] MEDS: FAMOTIDINE 20 MG TAB PO SCH (11:43)
[2022-05-19] MEDS: DIPHENOXYLATE/ATROPINE TAB PO SCH ×3 (11:43→21:18)
[2022-05-19] MEDS ORDERED: SEVOFLURANE INHAL SOLN 250 ML PEN BTL ONE (12:37)
[2022-05-19] MEDS ORDERED: METOCLOPRAMIDE HCL 10 MG/2ML VIAL ONE (12:37)
[2022-05-19] MEDS ORDERED: EPHEDRINE SULFATE INJ 50 MG/ML VIAL ONE (12:37)
[2022-05-19] MEDS ORDERED: ROCURONIUM BROMIDE 10 MG/ML 5ML VIAL IV ONE (12:37)
[2022-05-19] MEDS ORDERED: KETOROLAC TROMETHAMINE 30 MG/ML VIAL ONE (12:37)
[2022-05-19] MEDS ORDERED: SUCCINYLCHOLINE CHLORIDE 20 MG/ML 10ML VIAL ONE (12:37)
[2022-05-19] MEDS ORDERED: POVIDONE IODINE 0.05% 0.05 % ML PO ONE (12:37)
[2022-05-19] MEDS ORDERED: PROPOFOL IV EMULSION 10 MG/ML 20 ML VIAL ONE (12:37)
[2022-05-19] MEDS ORDERED: FENTANYL CITRATE/PF 100MCG/2 ML INJ ONE (13:43)
[2022-05-19] MEDS ORDERED: MIDAZOLAM HCL 2 MG/2 ML VIAL ONE (13:43)
[2022-05-19] MEDS: CYANOCOBALAMIN 1,000 MCG TAB PO SCH (16:40)
[2022-05-19] MEDS: MULTIVITAMINS/MINERALS TAB PO SCH (16:40)
[2022-05-19] MEDS: GENTAMICIN SULFATE 15 GM CR TP SCH (21:00)
[2022-05-19] MEDS: NPH, HUMAN INSULIN ISOPHANE 100 UNIT/1 ML 3ML VIAL SQ SCH (21:00)
[2022-05-19] MEDS: HYDROCODONE/APAP 10MG-325MG TAB PO PRN (21:17)
[2022-05-19] MEDS: ROPINIROLE HCL 0.25 MG TAB PO SCH (21:17)
[2022-05-20] VITALS (8 sets, daily range): BP systolic 92–175; BP diastolic 57–98
[2022-05-20] MEDS: LEVOTHYROXINE SODIUM 25 MCG TABLET PO SCH (05:18)
[2022-05-20] MEDS: [UNRECOGNIZED DRUG - OTHER] PO SCH ×3 (08:00→17:00)
[2022-05-20] MEDS: PANCRELIPASE PO SCH ×3 (08:00→17:00)
[2022-05-20] MEDS: SEVELAMER CARBONATE 800 MG TAB PO SCH ×3 (08:23→16:45)
[2022-05-20] MEDS: NIFEDIPINE CR 30 MG TAB PO SCH ×2 (08:24→21:05)
[2022-05-20] MEDS: FAMOTIDINE 20 MG TAB PO SCH (08:24)
[2022-05-20] MEDS: METRONIDAZOLE 500 MG TAB PO SCH ×2 (08:24→21:12)
[2022-05-20] MEDS: DIPHENOXYLATE/ATROPINE TAB PO SCH ×3 (08:26→21:05)
[2022-05-20] MEDS: INSULIN REGULAR, HUMAN 100 UNIT/1 ML SQ SCH ×3 (08:30→16:45)
[2022-05-20] MEDS: MULTIVITAMINS/MINERALS TAB PO SCH (16:45)
[2022-05-20] MEDS: CYANOCOBALAMIN 1,000 MCG TAB PO SCH (16:45)
[2022-05-20 17:09] LABS: BASOPHILS % 0.1 % (0.0-1.0); EOSINOPHILS # (AUTO) 0.2 (0.0-0.4); EOSINOPHILS % 0.7 % (0.0-6.0); HEMATOCRIT 24.2 % (38.2-49.6); HEMOGLOBIN 7.6 g/dL (14.0-18.0); LYMPHOCYTES % 9.5 % (18.0-39.1); MEAN CORPUSCULAR HEMOGLOBIN 29.2 pg (28-32); MEAN CORPUSCULAR HGB CONC 31.4 g/dL (31-35); MEAN CORPUSCULAR VOLUME 93.1 fL (81-99); MONOCYTES # (AUTO) 1.8 (0.2-0.8); MONOCYTES % 8.3 % (4.4-11.3); NEUTROPHILS # (AUTO) 16.7 (2.1-6.9); NEUTROPHILS % 78.7 % (38.7-80.0); PLATELET COUNT 308 x10e3/uL (140-360)
[2022-05-20] MEDS: GENTAMICIN SULFATE 15 GM CR TP SCH (21:00)
[2022-05-20] MEDS: ROPINIROLE HCL 0.25 MG TAB PO SCH (21:03)
[2022-05-20] MEDS: HYDROCODONE/APAP 10MG-325MG TAB PO PRN (21:13)
[2022-05-21] VITALS (7 sets, daily range): BP systolic 98–119; BP diastolic 60–77
[2022-05-21] MEDS: NPH, HUMAN INSULIN ISOPHANE 100 UNIT/1 ML 3ML VIAL SQ SCH (00:54)
[2022-05-21] MEDS: INSULIN REGULAR, HUMAN 100 UNIT/1 ML SQ SCH ×4 (02:19→16:00)
[2022-05-21] MEDS: LEVOTHYROXINE SODIUM 25 MCG TABLET PO SCH (04:57)
[2022-05-21 05:09] LABS: BASOPHILS % 0.1 % (0.0-1.0); EOSINOPHILS # (AUTO) 0.2 (0.0-0.4); EOSINOPHILS % 1.3 % (0.0-6.0); HEMATOCRIT 22.3 % (38.2-49.6); LYMPHOCYTES # (AUTO) 1.9 (1.0-3.2); MEAN CORPUSCULAR HEMOGLOBIN 29.7 pg (28-32); MEAN CORPUSCULAR HGB CONC 31.4 g/dL (31-35); MEAN CORPUSCULAR VOLUME 94.5 fL (81-99); MONOCYTES # (AUTO) 1.7 (0.2-0.8); MONOCYTES % 9.6 % (4.4-11.3); NEUTROPHILS # (AUTO) 13.2 (2.1-6.9); NEUTROPHILS % 75.3 % (38.7-80.0); PLATELET COUNT 237 x10e3/uL (140-360); RED BLOOD COUNT 2.36 x10e6/uL (4.3-5.7); RED CELL DISTRIBUTION WIDTH 18.3 % (11.7-14.4)
[2022-05-21] MEDS: FAMOTIDINE 20 MG TAB PO SCH (08:51)
[2022-05-21] MEDS: SEVELAMER CARBONATE 800 MG TAB PO SCH ×3 (08:51→17:00)
[2022-05-21] MEDS: DIPHENOXYLATE/ATROPINE TAB PO SCH ×2 (08:52→14:16)
[2022-05-21] MEDS: METRONIDAZOLE 500 MG TAB PO SCH (08:52)
[2022-05-21] MEDS: NIFEDIPINE CR 30 MG TAB PO SCH (08:52)
[2022-05-21] MEDS: [UNRECOGNIZED DRUG - OTHER] PO SCH ×3 (08:54→17:00)
[2022-05-21] MEDS: PANCRELIPASE PO SCH ×3 (08:54→17:00)
[2022-05-21] MEDS ORDERED: METRONIDAZOLE500 MG PO (10:35)
[2022-05-21] MEDS ORDERED: NIFEDIPINE ER30 M1 PO (10:35)
[2022-05-21] MEDS ORDERED: Multivitamins/Minerals PO (10:35)
[2022-05-21] MEDS ORDERED: SODIUM CHLORIDE 0.9% 250ML 250 ML IV ONE (13:30)
[2022-05-21] MEDS: HYDROCODONE/APAP 10MG-325MG TAB PO PRN (14:16)
[2022-05-21] MEDS: CYANOCOBALAMIN 1,000 MCG TAB PO SCH (17:00)
[2022-05-21] MEDS: MULTIVITAMINS/MINERALS TAB PO SCH (17:00)
[2022-05-21] MEDS ORDERED: SODIUM CHLORIDE 0.9% 500ML 500 ML ONE (17:03)
== END 2022-05-21 21:00 | disposition home or self-care (01) | DRG 981 ==
LOC: ER 21:10 → ERHOLD 05-10 01:44 → MED/SURG3 05-10 17:31
PROVIDERS: ADMIT Internal Medicine; ATTEND Internal Medicine
PROC: 8E0ZXY6 Isolation (ICD-10-PCS; principal; 2022-05-10)
PROC: 3E0DX3Z Introduction of Anti-inflammatory into Mouth and Pharynx, External Approach (ICD-10-PCS; 2022-05-11)
PROC: XW033E5 Introduction of Remdesivir Anti-infective into Peripheral Vein, Percutaneous Approach, New Technology Group 5 (ICD-10-PCS; 2022-05-12)
PROC: 02H633Z Insertion of Infusion Device into Right Atrium, Percutaneous Approach (ICD-10-PCS; 2022-05-16)
PROC: B5181ZA Fluoroscopy of Superior Vena Cava using Low Osmolar Contrast, Guidance (ICD-10-PCS; 2022-05-16)
PROC: 5A1D70Z Performance of Urinary Filtration, Intermittent, Less than 6 Hours Per Day (ICD-10-PCS; 2022-05-16)
PROC: 0WWG43Z Revision of Infusion Device in Peritoneal Cavity, Percutaneous Endoscopic Approach (ICD-10-PCS; 2022-05-19)
DX: U07.1 COVID-19 (principal); J12.82 Pneumonia due to coronavirus disease 2019; N18.6 End stage renal disease; J15.9 Unspecified bacterial pneumonia; K65.9 Peritonitis, unspecified; N39.0 Urinary tract infection, site not specified; E87.1 Hypo-osmolality and hyponatremia; T85.611A Breakdown (mechanical) of intraperitoneal dialysis catheter, initial encounter; E10.22 Type 1 diabetes mellitus with diabetic chronic kidney disease; E03.9 Hypothyroidism, unspecified; K74.60 Unspecified cirrhosis of liver; E10.21 Type 1 diabetes mellitus with diabetic nephropathy; R09.02 Hypoxemia; R74.01 Elevation of levels of liver transaminase levels; D63.1 Anemia in chronic kidney disease; E10.51 Type 1 diabetes mellitus with diabetic peripheral angiopathy without gangrene; K80.20 Calculus of gallbladder without cholecystitis without obstruction; Z99.2 Dependence on renal dialysis; Z79.4 Long term (current) use of insulin; Z89.429 Acquired absence of other toe(s), unspecified side; Z94.7 Corneal transplant status
CPT/HCPCS: 36415; 36558; 70551; 71046; 74176; 74470; 76705; 76937; 77001; 80048; 80053; 80061; 80307; 81001; 82607; 82728; 82948; 83036; 83540; 83690; 84157; 84295; 84466; 85025; 85610; 85730; 86704; 86706; 86850; 86900; 86920; 87040; 87070; 87205; 87340; 88304; 89051; 90962; 94799; 95819; 96372; 99152; 99153; 99284; C1892; J0248; J0330; J0456; J0690; J0696; J1644; J1815; J1817; J1885; J2250; J2405; J2550; J2765; J2997; J3010; J3370; J7030; J7040; J7050; P9016